=== PATIENT | female | born 1960 | race Hispanic/Latino ===

== ENCOUNTER 2020-05-31 09:21 | Inpatient (IN) | payer OTHER ==
[~2020-05-31] VITALS: Ht 154.9 cm; Wt 59.0 kg
[~2020-05-31 09:21] MED LIST: ASPIRIN EC81 MG PO; ATORVASTATIN CA20 MG PO; BUDESONIDE0.5 MG/2 M NEB; FOLIC ACID1 MG PO; IPRATROPIU0.2 MG/1 M NEB; LIDODERM700 MG; METOPROLOL TART25 MG PO
[2020-05-31] MEDS ORDERED: ONDANSETRON HCL INJ 2MG/ML 2ML 2 MG/ML VIAL IV STA (09:39)
[2020-05-31] MEDS ORDERED: PANTOPRAZOLE 40 MG 10ML VIAL IV STA (09:39)
[2020-05-31] MEDS ORDERED: ASPIRIN 81 MG CHEW TAB PO ONE (09:45)
[2020-05-31] MEDS ORDERED: ACETAMINOPHEN-1 EAC4 (09:59)
[2020-05-31] MEDS ORDERED: ALBUTEROL (09:59)
[2020-05-31] MEDS ORDERED: HUMULIN 70100 UNIT/1 (09:59)
[2020-05-31] MEDS ORDERED: LOSARTAN POTASS25 MG (09:59)
[2020-05-31] MEDS ORDERED: ATORVASTATIN CA40 MG (09:59)
[2020-05-31] MEDS ORDERED: DIAZEPAM10 MG (09:59)
[2020-05-31] MEDS ORDERED: CLOPIDOGREL75 MG (09:59)
[2020-05-31] MEDS ORDERED: MOTRIN800 MG (09:59)
[2020-05-31] MEDS ORDERED: GABAPENTIN600 MG (09:59)
[2020-05-31 10:18] LABS: BASOPHILS # (AUTO) 0.1 (0.0-0.1); BASOPHILS % 0.9 % (0.0-1.0); EOSINOPHILS # (AUTO) 0.2 (0.0-0.4); EOSINOPHILS % 3.2 % (0.0-6.0); HEMATOCRIT 37.8 % (34.2-44.1); HEMOGLOBIN 12.2 g/dL (12.0-16.0); INR 0.94; LYMPHOCYTES # (AUTO) 1.5 (1.0-3.2); LYMPHOCYTES % 25.7 % (18.0-39.1); MEAN CORPUSCULAR HEMOGLOBIN 30.1 pg (28-32); MEAN CORPUSCULAR HGB CONC 32.3 g/dL (31-35); MEAN CORPUSCULAR VOLUME 93.3 fL (81-99); MONOCYTES # (AUTO) 0.3 (0.2-0.8); MONOCYTES % 5.3 % (4.4-11.3); NEUTROPHILS # (AUTO) 3.7 (2.1-6.9); NEUTROPHILS % 64.5 % (38.7-80.0); PARTIAL THROMBOPLASTIN TIME 29.9 seconds (23.8-35.5); PLATELET COUNT 229 x10e3/uL (140-360); RED BLOOD COUNT 4.05 x10e6/uL (3.6-5.1); RED CELL DISTRIBUTION WIDTH 15.8 % (11.7-14.4)
[2020-05-31 10:26] LABS: AMPHETAMINES SCREEN,URINE NEGATIVE (NEGATIVE); BENZODIAZEPINES SCREEN,URINE NEGATIVE (NEGATIVE); PHENCYCLIDINE SCREEN,URINE NEGATIVE (NEGATIVE)
[2020-05-31 10:27] LABS: ALANINE AMINOTRANSFERASE 6 IU/L (0-55); ALBUMIN/GLOBULIN RATIO 1.1 (0.8-2.0); ALKALINE PHOSPHATASE 88 IU/L (40-150); ANION GAP 13.9 mmol/L (8-16); BILIRUBIN,URINE NEGATIVE (NEGATIVE); BLOOD UREA NITROGEN 11 mg/dL (7-26); BUN/CREATININE RATIO 14 (6-25); CALCIUM 9.1 mg/dL (8.4-10.2); CARBON DIOXIDE 20 mmol/L (22-29); CHLORIDE 111 mmol/L (98-107); CLARITY,URINE CLEAR (CLEAR); COLOR,URINE YELLOW (YELLOW); CREATINE KINASE 101 IU/L (29-168); CREATININE, SERUM 0.76 mg/dL (0.57-1.11); EST GLOMERULAR FILTRATION RATE > 60 ML/MIN (60-); GLUCOSE 182 mg/dL (74-118); KETONES,URINE NEGATIVE (NEGATIVE); LEUKOCYTE ESTERASE ,URINE NEGATIVE (NEGATIVE); NITRITE,URINE NEGATIVE (NEGATIVE); PROTEIN,URINE DIPSTICK NEGATIVE (NEGATIVE); SODIUM 142 mmol/L (136-145); URINE UROBILINOGEN 0.2 mg/dL (0.2 - 1)
[2020-05-31 10:30] LABS: POTASSIUM 2.9 mmol/L (3.5-5.1)
[2020-05-31] MEDS ORDERED: NITROGLYCERIN 0.4 MG SUBL SL PRN (10:30)
[2020-05-31] MEDS ORDERED: DEXTROSE 50% SYRINGE 50 ML IV PRN (10:30)
[2020-05-31 10:39] LABS: BACTERIA,URINE FEW /HPF; EPITHELIAL CELLS,URINE FEW /LPF; RBC,URINE 0-5 /HPF (0-5); TRANSITIONAL EPI CELLS,URINE RARE; WBC,URINE (MAN) 0-5 /HPF (0-5)
[2020-05-31] MEDS ORDERED: POTASSIUM CHLORIDE 20 MEQ TAB CR PO ONE (11:00)
[2020-05-31 11:23] VITALS: BP 151/78
[2020-05-31] MEDS: INSULIN LISPRO 100 UNIT/1 ML 3ML VIAL SQ SCH ×3 (11:30→20:51)
[2020-05-31] MEDS ORDERED: AZITHROMYCIN 500MG/NS 250 ML 250 ML IV SCH (12:00)
[2020-05-31] MEDS ORDERED: SODIUM CHLORIDE 0.9% 250ML 250 ML ONE (12:17)
[2020-05-31] MEDS: MORPHINE SULFATE 2 MG/ML SYR 1ML IV PRN ×3 (12:30→20:52)
[2020-05-31] MEDS: CEFTRIAXONE SOD 1 GM/NS 50 ML 50 ML IV SCH (12:30)
[2020-05-31] MEDS ORDERED: MAGNESIUM SULFATE 2GM/50ML 50 ML IV ONE (12:30)
[2020-05-31] MEDS ORDERED: MAGNESIUM SULF 1GRAM/DEXTROSE 100 ML IV ONE (14:30)
[2020-05-31 16:00] VITALS: BP 115/65
[2020-05-31 16:28] LABS: CREATINE KINASE MB 2.9 ng/mL (0-5.0)
[2020-05-31] MEDS: AZITHROMYCIN 500MG/NS 250 ML 250 ML IV SCH (16:59)
[2020-05-31] MEDS ORDERED: METOPROLOL TARTRATE INJ 1 MG/ML VIAL IV PRN (17:30)
[2020-05-31] MEDS ORDERED: TEMAZEPAM 7.5 MG CAP PO PRN (17:30)
[2020-05-31] MEDS ORDERED: POLYETHYLENE GLYCOL 3350 17 GM PACK PO PRN (17:30)
[2020-05-31 20:00] VITALS: BP 127/68
[2020-05-31] MEDS ORDERED: FAMOTIDINE 20 MG/2 ML VIAL IV SCH (20:00)
[2020-05-31] MEDS: ONDANSETRON HCL INJ 2MG/ML 2ML 2 MG/ML VIAL IV PRN (20:52)
[2020-05-31] MEDS ORDERED: TEMAZEPAM 15 MG CAP PO PRN (21:00)
[2020-05-31 22:08] VITALS: BP 127/68
[2020-06-01] VITALS (8 sets, daily range): BP systolic 110–143; BP diastolic 60–74
[2020-06-01] MEDS: MORPHINE SULFATE 2 MG/ML SYR 1ML IV PRN ×6 (00:47→23:40)
[2020-06-01] MEDS: ONDANSETRON HCL INJ 2MG/ML 2ML 2 MG/ML VIAL IV PRN ×3 (01:00→19:48)
[2020-06-01 01:12] LABS: CREATINE KINASE MB 2.7 ng/mL (0-5.0)
[2020-06-01 05:27] LABS: BASOPHILS % 0.8 % (0.0-1.0); EOSINOPHILS # (AUTO) 0.2 (0.0-0.4); EOSINOPHILS % 4.9 % (0.0-6.0); HEMATOCRIT 36.7 % (34.2-44.1); HEMOGLOBIN 11.6 g/dL (12.0-16.0); LYMPHOCYTES # (AUTO) 1.2 (1.0-3.2); LYMPHOCYTES % 31.7 % (18.0-39.1); MEAN CORPUSCULAR HEMOGLOBIN 29.4 pg (28-32); MEAN CORPUSCULAR HGB CONC 31.6 g/dL (31-35); MEAN CORPUSCULAR VOLUME 93.1 fL (81-99); MONOCYTES # (AUTO) 0.4 (0.2-0.8); MONOCYTES % 9.4 % (4.4-11.3); NEUTROPHILS % 52.9 % (38.7-80.0); PLATELET COUNT 212 x10e3/uL (140-360); RED BLOOD COUNT 3.94 x10e6/uL (3.6-5.1); RED CELL DISTRIBUTION WIDTH 15.9 % (11.7-14.4)
[2020-06-01 05:49] LABS: ALANINE AMINOTRANSFERASE 6 IU/L (0-55); ALBUMIN 3.6 g/dL (3.5-5.0); ALBUMIN/GLOBULIN RATIO 1.2 (0.8-2.0); ALKALINE PHOSPHATASE 88 IU/L (40-150); ANION GAP 10.7 mmol/L (8-16); BLOOD UREA NITROGEN 10 mg/dL (7-26); BUN/CREATININE RATIO 15 (6-25); CALCIUM 8.7 mg/dL (8.4-10.2); CARBON DIOXIDE 23 mmol/L (22-29); CHLORIDE 112 mmol/L (98-107); CHOL/HDL RATIO 3.2 (3.0-3.6); CHOLESTEROL 182 MD/DL (0-199); CREATININE, SERUM 0.67 mg/dL (0.57-1.11); EST GLOMERULAR FILTRATION RATE > 60 ML/MIN (60-); GLUCOSE 94 mg/dL (74-118); HDL CHOLESTEROL 57 MG/DL (40-60); LDL CHOLESTEROL 95 MG/DL (60-130); POTASSIUM 3.7 mmol/L (3.5-5.1); SODIUM 142 mmol/L (136-145); TRIGLYCERIDES 152 MG/DL (0-149)
[2020-06-01 06:03] LABS: PHOSPHORUS 3.5 MG/DL (2.3-4.7)
[2020-06-01 06:23] LABS: THYROID STIMULATING HORMONE 6.374 uIU/mL (0.350-4.940)
[2020-06-01] MEDS: INSULIN LISPRO 100 UNIT/1 ML 3ML VIAL SQ SCH ×4 (07:30→21:00)
[2020-06-01] MEDS: ACETAMINOPHEN 325 MG TAB PO PRN (08:45)
[2020-06-01] MEDS: CLOPIDOGREL BISULFATE 75 MG TAB PO SCH (09:00)
[2020-06-01] MEDS: ASPIRIN 81 MG ENTERIC COATED PO SCH (09:00)
[2020-06-01] MEDS: DOCUSATE SODIUM 100 MG CAP PO SCH ×2 (09:00→16:47)
[2020-06-01] MEDS: CEFTRIAXONE SOD 1 GM/NS 50 ML 50 ML IV SCH (11:15)
[2020-06-01] MEDS: FAMOTIDINE 20 MG TAB PO SCH (16:30)
[2020-06-01] MEDS: AZITHROMYCIN 500MG/NS 250 ML 250 ML IV SCH (16:47)
[2020-06-01] MEDS: MIRTAZAPINE 15 MG TAB PO SCH (19:42)
[2020-06-02] VITALS (11 sets, daily range): BP systolic 97–128; BP diastolic 53–74
[2020-06-02] MEDS: ONDANSETRON HCL INJ 2MG/ML 2ML 2 MG/ML VIAL IV PRN ×6 (00:03→21:45)
[2020-06-02] MEDS: MORPHINE SULFATE 2 MG/ML SYR 1ML IV PRN ×5 (04:03→21:13)
[2020-06-02] MEDS: LEVOTHYROXINE SODIUM 25 MCG TABLET PO SCH (04:46)
[2020-06-02 05:40] LABS: BASOPHILS % 0.5 % (0.0-1.0); EOSINOPHILS # (AUTO) 0.2 (0.0-0.4); EOSINOPHILS % 2.8 % (0.0-6.0); HEMATOCRIT 36.7 % (34.2-44.1); HEMOGLOBIN 11.7 g/dL (12.0-16.0); LYMPHOCYTES # (AUTO) 1.1 (1.0-3.2); LYMPHOCYTES % 18.8 % (18.0-39.1); MEAN CORPUSCULAR HEMOGLOBIN 29.3 pg (28-32); MEAN CORPUSCULAR HGB CONC 31.9 g/dL (31-35); MEAN CORPUSCULAR VOLUME 91.8 fL (81-99); MONOCYTES # (AUTO) 0.4 (0.2-0.8); MONOCYTES % 6.9 % (4.4-11.3); NEUTROPHILS # (AUTO) 4.1 (2.1-6.9); NEUTROPHILS % 70.8 % (38.7-80.0); PLATELET COUNT 216 x10e3/uL (140-360); RED CELL DISTRIBUTION WIDTH 15.7 % (11.7-14.4)
[2020-06-02 05:54] LABS: ANION GAP 9.4 mmol/L (8-16); BLOOD UREA NITROGEN 10 mg/dL (7-26); BUN/CREATININE RATIO 16 (6-25); CALCIUM 8.9 mg/dL (8.4-10.2); CARBON DIOXIDE 25 mmol/L (22-29); CHLORIDE 110 mmol/L (98-107); CREATININE, SERUM 0.63 mg/dL (0.57-1.11); EST GLOMERULAR FILTRATION RATE > 60 ML/MIN (60-); GLUCOSE 104 mg/dL (74-118); POTASSIUM 3.4 mmol/L (3.5-5.1); SODIUM 141 mmol/L (136-145)
[2020-06-02] MEDS: INSULIN LISPRO 100 UNIT/1 ML 3ML VIAL SQ SCH ×4 (07:30→20:31)
[2020-06-02] MEDS: BACITRACIN ZINC 15 GM OINT TOP SCH (07:50)
[2020-06-02] MEDS: FAMOTIDINE 20 MG TAB PO SCH ×2 (08:36→17:24)
[2020-06-02] MEDS: CLOPIDOGREL BISULFATE 75 MG TAB PO SCH (08:36)
[2020-06-02] MEDS: DOCUSATE SODIUM 100 MG CAP PO SCH ×2 (08:36→17:00)
[2020-06-02] MEDS: ASPIRIN 81 MG ENTERIC COATED PO SCH (08:36)
[2020-06-02] MEDS: CEFTRIAXONE SOD 1 GM/NS 50 ML 50 ML IV SCH (12:20)
[2020-06-02] MEDS: AZITHROMYCIN 500MG/NS 250 ML 250 ML IV SCH (17:26)
[2020-06-02] MEDS ORDERED: POTASSIUM CHLORIDE 20 MEQ TAB CR PO ONE (19:00)
[2020-06-02] MEDS: MIRTAZAPINE 15 MG TAB PO SCH (20:30)
[2020-06-03] VITALS (11 sets, daily range): BP systolic 93–133; BP diastolic 59–76
[2020-06-03] MEDS: MORPHINE SULFATE 2 MG/ML SYR 1ML IV PRN ×5 (00:24→15:35)
[2020-06-03] MEDS: LEVOTHYROXINE SODIUM 25 MCG TABLET PO SCH (05:01)
[2020-06-03] MEDS: ONDANSETRON HCL INJ 2MG/ML 2ML 2 MG/ML VIAL IV PRN ×3 (05:30→15:35)
[2020-06-03 06:03] LABS: BASOPHILS # (AUTO) 0.1 (0.0-0.1); BASOPHILS % 0.7 % (0.0-1.0); EOSINOPHILS # (AUTO) 0.2 (0.0-0.4); EOSINOPHILS % 2.5 % (0.0-6.0); HEMATOCRIT 40.4 % (34.2-44.1); HEMOGLOBIN 12.8 g/dL (12.0-16.0); LYMPHOCYTES # (AUTO) 1.2 (1.0-3.2); LYMPHOCYTES % 17.1 % (18.0-39.1); MEAN CORPUSCULAR HEMOGLOBIN 29.6 pg (28-32); MEAN CORPUSCULAR HGB CONC 31.7 g/dL (31-35); MEAN CORPUSCULAR VOLUME 93.5 fL (81-99); MONOCYTES # (AUTO) 0.7 (0.2-0.8); MONOCYTES % 9.8 % (4.4-11.3); NEUTROPHILS # (AUTO) 4.8 (2.1-6.9); NEUTROPHILS % 69.6 % (38.7-80.0); PLATELET COUNT 216 x10e3/uL (140-360); RED BLOOD COUNT 4.32 x10e6/uL (3.6-5.1); RED CELL DISTRIBUTION WIDTH 15.5 % (11.7-14.4)
[2020-06-03 06:25] LABS: ANION GAP 11.4 mmol/L (8-16); BLOOD UREA NITROGEN 9 mg/dL (7-26); BUN/CREATININE RATIO 14 (6-25); CALCIUM 9.5 mg/dL (8.4-10.2); CARBON DIOXIDE 25 mmol/L (22-29); CHLORIDE 110 mmol/L (98-107); CREATININE, SERUM 0.64 mg/dL (0.57-1.11); EST GLOMERULAR FILTRATION RATE > 60 ML/MIN (60-); GLUCOSE 90 mg/dL (74-118); POTASSIUM 3.4 mmol/L (3.5-5.1); SODIUM 143 mmol/L (136-145)
[2020-06-03] MEDS: INSULIN LISPRO 100 UNIT/1 ML 3ML VIAL SQ SCH ×4 (07:30→21:46)
[2020-06-03] MEDS: ASPIRIN 81 MG ENTERIC COATED PO SCH (08:40)
[2020-06-03] MEDS: FAMOTIDINE 20 MG TAB PO SCH ×2 (08:40→15:59)
[2020-06-03] MEDS: CLOPIDOGREL BISULFATE 75 MG TAB PO SCH (08:40)
[2020-06-03] MEDS: DOCUSATE SODIUM 100 MG CAP PO SCH ×2 (08:40→15:59)
[2020-06-03] MEDS: CEFTRIAXONE SOD 1 GM/NS 50 ML 50 ML IV SCH (12:25)
[2020-06-03] MEDS ORDERED: ONDANSETRON HCL 4 MG ORAL DISINTEGRATING TAB PO PRN (15:45)
[2020-06-03] MEDS: BACITRACIN ZINC 15 GM OINT TOP SCH (16:11)
[2020-06-03] MEDS: TRIMETHOPRIM/SULFAMETHOXAZOLE 160-800 MG TAB PO SCH ×2 (16:27→21:31)
[2020-06-03] MEDS: ACETAMINOPHEN 325 MG TAB PO PRN (16:28)
[2020-06-03] MEDS ORDERED: POTASSIUM CHLORIDE 20 MEQ TAB CR PO SCH (16:30)
[2020-06-03] MEDS ORDERED: AZITHROMYCIN 250 MG TAB PO SCH (17:00)
[2020-06-03] MEDS: HYDROCODONE/APAP 5MG-325MG TAB PO PRN (18:30)
[2020-06-03] MEDS: MIRTAZAPINE 15 MG TAB PO SCH (21:31)
[2020-06-04 04:00] VITALS: BP 108/62
[2020-06-04 05:22] LABS: BASOPHILS % 0.6 % (0.0-1.0); EOSINOPHILS # (AUTO) 0.2 (0.0-0.4); EOSINOPHILS % 2.2 % (0.0-6.0); LYMPHOCYTES # (AUTO) 1.1 (1.0-3.2); LYMPHOCYTES % 16.6 % (18.0-39.1); MEAN CORPUSCULAR HEMOGLOBIN 29.7 pg (28-32); MEAN CORPUSCULAR HGB CONC 31.6 g/dL (31-35); MEAN CORPUSCULAR VOLUME 94.1 fL (81-99); MONOCYTES # (AUTO) 0.9 (0.2-0.8); MONOCYTES % 12.5 % (4.4-11.3); NEUTROPHILS # (AUTO) 4.7 (2.1-6.9); NEUTROPHILS % 67.8 % (38.7-80.0); PLATELET COUNT 205 x10e3/uL (140-360); RED BLOOD COUNT 4.04 x10e6/uL (3.6-5.1); RED CELL DISTRIBUTION WIDTH 15.1 % (11.7-14.4)
[2020-06-04 05:42] LABS: ANION GAP 9.7 mmol/L (8-16); BLOOD UREA NITROGEN 12 mg/dL (7-26); BUN/CREATININE RATIO 19 (6-25); CALCIUM 9.4 mg/dL (8.4-10.2); CARBON DIOXIDE 25 mmol/L (22-29); CHLORIDE 110 mmol/L (98-107); CREATININE, SERUM 0.63 mg/dL (0.57-1.11); EST GLOMERULAR FILTRATION RATE > 60 ML/MIN (60-); GLUCOSE 93 mg/dL (74-118); MAGNESIUM 1.8 MG/DL (1.3-2.1); POTASSIUM 3.7 mmol/L (3.5-5.1); SODIUM 141 mmol/L (136-145)
[2020-06-04] MEDS: LEVOTHYROXINE SODIUM 25 MCG TABLET PO SCH (06:40)
[2020-06-04] MEDS: INSULIN LISPRO 100 UNIT/1 ML 3ML VIAL SQ SCH ×2 (07:30→12:03)
[2020-06-04 07:41] VITALS: BP 99/64
[2020-06-04] MEDS: BACITRACIN ZINC 15 GM OINT TOP SCH (08:27)
[2020-06-04] MEDS: TRIMETHOPRIM/SULFAMETHOXAZOLE 160-800 MG TAB PO SCH (08:27)
[2020-06-04] MEDS: DOCUSATE SODIUM 100 MG CAP PO SCH (08:27)
[2020-06-04] MEDS: FAMOTIDINE 20 MG TAB PO SCH (08:27)
[2020-06-04] MEDS: ASPIRIN 81 MG ENTERIC COATED PO SCH (08:27)
[2020-06-04] MEDS: CLOPIDOGREL BISULFATE 75 MG TAB PO SCH (08:27)
[2020-06-04 09:00] VITALS: BP 99/64
[2020-06-04 11:03] VITALS: BP 100/63
[2020-06-04] MEDS: HYDROCODONE/APAP 5MG-325MG TAB PO PRN (12:15)
[2020-06-04] MEDS ORDERED: NITROSTAT0.4 MG SL (14:26)
[2020-06-04] MEDS ORDERED: Trimethoprim/Sulfamethoxazole PO (14:26)
[2020-06-04] MEDS ORDERED: ACETAMINOPHEN325 M1 PO (14:26)
[2020-06-04] MEDS ORDERED: LEVOTHYROXINE25 MCG PO (14:26)
[2020-06-04] MEDS ORDERED: MIRTAZAPINE15 MG PO (14:26)
[2020-06-04 15:15] VITALS: BP 115/61
== END 2020-06-04 15:25 | disposition home or self-care (01) | DRG 896 ==
LOC: ER 09:37 → ERHOLD 10:23 → MED/SURG2 11:23 → OBSVTOIN 06-02 19:02
PROVIDERS: ADMIT Internal Medicine; ATTEND Internal Medicine
DX: F14.988 Cocaine use, unspecified with other cocaine-induced disorder (principal); J69.0 Pneumonitis due to inhalation of food and vomit; F15.90 Other stimulant use, unspecified, uncomplicated; E78.5 Hyperlipidemia, unspecified; I10 Essential (primary) hypertension; I25.10 Atherosclerotic heart disease of native coronary artery without angina pectoris; Z95.1 Presence of aortocoronary bypass graft; F32.9 Major depressive disorder, single episode, unspecified; F41.9 Anxiety disorder, unspecified; I25.2 Old myocardial infarction; E83.42 Hypomagnesemia; E87.6 Hypokalemia; E11.65 Type 2 diabetes mellitus with hyperglycemia; F43.23 Adjustment disorder with mixed anxiety and depressed mood; G47.00 Insomnia, unspecified; R63.4 Abnormal weight loss; Z68.24 Body mass index [BMI] 24.0-24.9, adult; I69.391 Dysphagia following cerebral infarction; R13.10 Dysphagia, unspecified; Z11.59 Encounter for screening for other viral diseases
CPT/HCPCS: 36415; 71045; 71250; 80048; 80053; 80061; 80307; 81001; 82550; 82553; 82948; 83036; 83735; 83880; 84100; 84443; 84484; 85025; 85610; 85730; 87040; 87086; 93005; 99251; 99285; G0378; J0456; J0696; J2270; J2405; J3475; J7050; U0002